=== PATIENT | male | born 1965 | race Hispanic/Latino ===

== ENCOUNTER 2017-07-23 05:41 | Day surgery (SDC) | payer OTHER ==
[~2017-07-23] VITALS: Ht 165.1 cm; Wt 69.4 kg
--- NOTE | 2017-07-23 08:00 | NUR ---
07/23/17 0800 Hina Razo 0751 PT ARRIVED IN PACU WITH ORAL AIRWAY IN PLACE AND TRANSPORT GUARDS AT BEDSIDE.
--- NOTE | 2017-07-23 08:31 | NUR ---
ICED WATER GIVEN. OFFICERS @ BS.
[2017-07-23] MEDS ORDERED: ULTRAM50 MG PO (08:40)
--- NOTE | 2017-07-23 09:29 | NUR ---
VERBAL DC INSTRUCTIONS GIVEN AND PT VERBALIZES UNDERSTANDING. OFFICERS REPORT PATIENT WAS UP TO BR AND HAD SUCCESSFUL VOID. PATIENT DENIES ISSUES W/AMBULATION.
--- NOTE | 2017-07-23 09:36 | NUR ---
REPORT CALLED TO IVAN IRBEIRO AT [facility] AND HIS QUESTIONS ARE ANSWERED. PATIENT DRESSES SELF IN PRESENCE OF OFFICERS AND TOLERATES THAT WELL.
--- NOTE | 2017-07-25 07:17 | OR ---
[facility] [address], [place] [address] Signed DATE OF OPERATION: 07/23/2017 SURGEON: Stephanie Knowles MD PREOPERATIVE DIAGNOSIS: Torn lateral meniscus, left knee. POSTOPERATIVE DIAGNOSIS: Torn lateral meniscus, left knee. PROCEDURE: Left knee arthroscopy with partial lateral meniscectomy. ANESTHESIA: General. SPECIMENS AND COMPLICATIONS: There were no specimens or complications. TOURNIQUET TIME: About 20 minutes. WHAT WAS DONE: The patient was taken to the operating room. After anesthesia was induced and airway secured, the patient was positioned, prepped and draped in a routine sterile fashion. The outflow cannula was inserted superolaterally and the arthroscope was inserted through the standard anterolateral portal. A medial portal was created using transillumination and localization with a spinal needle. We then introduced a probe anteromedially. Diagnostic arthroscopy of the knee revealed an unremarkable suprapatellar pouch, patellofemoral joint, medial recess, medial compartment and intercondylar notch. The lateral compartment revealed a complex tear of the lateral meniscus with some areas of grade 2 to borderline grade 3 chondral changes over the posterior aspect of the femoral condyle and the posterior aspect of the tibial plateau. We then withdrew the probe, inserted a basket forcep and completed the meniscal tear. We then inserted a 4 mm rotary shaver and gently debrided and trimmed the edges of the meniscectomy and then suctioned all debris out of the joint. The knee was copiously irrigated and drained. The portals were closed and a sterile dressing applied. The patient was awakened and taken to the recovery room where he arrived in stable condition. Counts were correct and antibiotic protocols were followed. Electronically Signed By: STEPHANIE KNOWLES MD 07/25/17 0717 PATIENT NAME: OSBALDO FRANK OPERATIVE REPORT DATE OF : 69 REPORT #: [id number] PHYSICIAN: STEPHANIE KNOWLES MD PCP: DANIEL SAUER MD REPORT IS CONFIDENTIAL AND NOT TO BE RELEASED WITHOUT AUTHORIZATION [address] [address] Signed Stephanie Knowles MD WFB/MODL /[id number] Copies: ~ Electronically Signed By: STEPHANIE KNOWLES MD 07/25/17 0717 PATIENT NAME: OSBALDO FRANK OPERATIVE REPORT DATE OF : 69 REPORT #: [id number] PHYSICIAN: STEPHANIE KNOWLES MD PCP: DANIEL SAUER MD REPORT IS CONFIDENTIAL AND NOT TO BE RELEASED WITHOUT AUTHORIZATION
== END 2017-07-23 09:35 | disposition home or self-care (01) ==
LOC: OPS 05:41 → DS 05:41 → OPS 06:45
PROVIDERS: Orthopaedic Surgery
PROC: 0SBD4ZZ Excision of Left Knee Joint, Percutaneous Endoscopic Approach (ICD-10-PCS; principal; 2017-07-23 06:45)
DX: S83.272A Complex tear of lateral meniscus, current injury, left knee, initial encounter (principal); X58.XXXA Exposure to other specified factors, initial encounter
CPT/HCPCS: 01400; J0690; J1100; J1885; J2250; J2405; J2704